=== PATIENT | female | born 1970 | race Two or more races ===

== ENCOUNTER 2020-10-14 14:25 | Emergency (ER) | payer OTHER ==
[2020-10-14] MEDS ORDERED: fentaNYL 100 MCG/2 ML SDV ONE (14:52)
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
[2020-10-14] MEDS ORDERED: Propofol 200 MG/20 ML SDV IVPUSH ONE (15:23)
[2020-10-14] MEDS ORDERED: fentaNYL 100 MCG/2 ML SDV IVPUSH ONE ×2 (15:35→17:31)
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
== END 2020-10-14 18:48 | disposition other institution (70) ==
LOC: JP.ED 14:25
DX: S32.422A Displaced fracture of posterior wall of left acetabulum, initial encounter for closed fracture (principal); S73.005A Unspecified dislocation of left hip, initial encounter; Z79.899 Other long term (current) drug therapy; V49.9XXA Car occupant (driver) (passenger) injured in unspecified traffic accident, initial encounter
CPT/HCPCS: 27250; 72170; 73501; 73700; 96374; 96376; 99152; 99285; J2704; J3010